=== PATIENT | female | born 1975 | race Caucasian/White ===

== ENCOUNTER 2024-10-18 17:38 | Emergency (ER) | payer OTHER ==
[~2024-10-18] VITALS: Ht 154.9 cm; Wt 80.7 kg
[2024-10-18] MEDS ORDERED: PROGESTERONE100 MG PO (18:00)
[2024-10-18] MEDS ORDERED: ADVIL200 MG PO (18:00)
[2024-10-18] MEDS ORDERED: TRAZODONE HCL50 MG PO (18:01)
[2024-10-18 18:11] LABS: BASOPHILS 1.2 % (0-2); EOSINOPHILS 5.1 % (0-6); HEMATOCRIT 38.6 % (35.0-50.0); HEMOGLOBIN 13.6 g/dL (12.0-18.0); MCH 32.2 (27-36); MCHC 35.1 g/dl (30-36); MCV 91.7 fl (81-99); MONOCYTES 7.2 % (0-12); NEUTROPHILS 44.5 % (39-80); PLATELET COUNT 361 K/uL (140-440); RBC 4.21 M/ul (4.3-5.7); RDW 13.8 (10.5-15.0)
[2024-10-18] MEDS ORDERED: fentaNYL citrate 100 MCG/2 ML VIAL IV ONE (18:15)
[2024-10-18] MEDS ORDERED: ondansetron HCL 4 MG/2 ML VIAL IV ONE (18:15)
[2024-10-18] MEDS ORDERED: SODIUM CHLORIDE 0.9% 1,000 ML IV PRN (18:15)
[2024-10-18 18:22] LABS: INR 0.87 (0.80-1.30); PROTIME 11.8 Sec (11.2-14.2)
[2024-10-18 18:27] LABS: ALBUMIN/GLOBULIN RATIO 1.11 (1.1-2.4); ANION GAP 15.4 (7-21); BILIRUBIN, TOTAL 0.2 mg/dL (0.2-1.0); BUN/CREATININE RATIO 18.75 (6.0-28.6); CALCIUM 9.2 mg/dL (8.5-10.1); CREATININE, SERUM 0.64 mg/dL (0.55-1.02); POTASSIUM 3.4 mmol/L (3.5-5.1); PROTEIN, TOTAL 7.6 g/dL (6.4-8.2)
[2024-10-18 18:30] LABS: LACTIC ACID, BLOOD 0.6 mmol/L (0.4-2.0)
[2024-10-18 19:07] LABS: ABO A; ANTIBODY SCREEN NEGATIVE; RH POSITIVE
[2024-10-18 19:47] LABS: BILIRUBIN, URINE NEGATIVE (negative); BLOOD/HGB, URINE TRACE-L (Negative); KETONE, URINE NEGATIVE (Negative); LEUK ESTERASE, URINE NEGATIVE (negative); NITRITE, URINE NEGATIVE (negative)
[2024-10-18 19:53] LABS: BACTERIA, URINE RARE /hpf (negative); CASTS, URINE NONE SEEN \\lpf; COLLECTION TYPE, URINE CLEAN CATCH; CRYSTALS, URINE NONE SEEN (0-1+); EPITHELIAL CELLS, URINE SQUAMOUS 1+ /lpf (0-1+); RED BLOOD CELLS, URINE 0-1 /hpf (0-5); REFLEX CULTURE, URINE No (No)
[2024-10-18] MEDS ORDERED: DICYCLOMINE HCL20 MG PO (20:59)
[2024-10-18] MEDS ORDERED: ONDANSETRON ODT8 MG PO (20:59)
[2024-10-18 21:13] VITALS: BP 117/79
[2024-10-18] MEDS ORDERED: MAGNESIUM CITRATE 300 ML BTL PO ONE (21:15)
== END 2024-10-18 21:14 | disposition home or self-care (01) ==
LOC: ED 17:38
PROVIDERS: Emergency Medicine
DX: R10.11 Right upper quadrant pain (principal); K80.20 Calculus of gallbladder without cholecystitis without obstruction; Z88.5 Allergy status to narcotic agent; Z79.899 Other long term (current) drug therapy
CPT/HCPCS: 36415; 74177; 76705; 80053; 81001; 83605; 83690; 84703; 85025; 85610; 86850; 86900; 86901; 96375; 99284-25; J2405; J3010; J7030; Q9967

== ENCOUNTER 2025-02-18 11:14 | Emergency (ER) | payer OTHER ==
[~2025-02-18] VITALS: Ht 154.9 cm; Wt 81.1 kg
[~2025-02-18 11:14] MED LIST: ADVIL200 MG PO; DICYCLOMINE HCL20 MG PO; ONDANSETRON ODT8 MG PO; PROGESTERONE100 MG PO; TRAZODONE HCL50 MG PO
[2025-02-18 11:58] LABS: BASOPHILS 1.3 % (0.1-1.2); EOSINOPHILS 2.7 % (0.7-5.8); LYMPHOCYTES 38.2 % (19.3-51.7); MCH 31.3 PG (25.6-32.2); MCHC 34.2 g/dL (32.2-35.5); MCV 91.3 fL (79.4-94.8); MONOCYTES 8.2 % (4.7-12.5); NEUTROPHILS 49.6 % (34.0-71.1); PLATELET COUNT 316 K/uL (182-369); RBC 4.16 M/uL (3.93-5.22)
[2025-02-18] MEDS ORDERED: SODIUM CHLORIDE 0.9% 1,000 ML IV PRN (12:00)
[2025-02-18] MEDS ORDERED: ondansetron HCL 4 MG/2 ML VIAL IV ONE (12:00)
[2025-02-18] MEDS ORDERED: KETOROLAC TROMETHAMINE 15 MG/ML VIAL IV ONE (12:00)
[2025-02-18 12:22] LABS: ALBUMIN 3.9 g/dL (3.4-5.0); ALBUMIN/GLOBULIN RATIO 1.05 (1.1-2.4); ANION GAP 13.9 (7-21); BILIRUBIN, TOTAL 0.4 mg/dL (0.2-1.0); BUN/CREATININE RATIO 17.56 (6.0-28.6); CREATININE, SERUM 0.74 mg/dL (0.55-1.02); POTASSIUM 3.9 mmol/L (3.5-5.1); PROTEIN, TOTAL 7.6 g/dL (6.4-8.2)
[2025-02-18] MEDS ORDERED: MIRALAX119 GM PO (13:06)
[2025-02-18 13:16] LABS: BILIRUBIN, URINE NEGATIVE (negative); BLOOD/HGB, URINE TRACE-I (Negative); KETONE, URINE NEGATIVE (Negative); LEUK ESTERASE, URINE NEGATIVE (negative); NITRITE, URINE NEGATIVE (negative)
[2025-02-18 13:26] LABS: WHITE BLOOD CELLS, URINE 0-1 /HPF (0-5)
[2025-02-18 13:28] LABS: BACTERIA, URINE RARE /hpf (negative); CASTS, URINE NONE SEEN \\lpf; COLLECTION TYPE, URINE CLEAN CATCH; CRYSTALS, URINE NONE SEEN (0-1+); EPITHELIAL CELLS, URINE SQUAMOUS 3+ /lpf (0-1+); REFLEX CULTURE, URINE No (No)
[2025-02-18 13:31] VITALS: BP 138/84
== END 2025-02-18 13:31 | disposition home or self-care (01) ==
LOC: ED 11:14
PROVIDERS: Emergency Medicine
DX: K59.00 Constipation, unspecified (principal); Z79.899 Other long term (current) drug therapy; Z88.5 Allergy status to narcotic agent
CPT/HCPCS: 36415; 74177; 80053; 81001; 83690; 84703; 85025; 96375; 99284-25; J1885; J2405; J7030; Q9967